=== PATIENT | female | born 1950 | race Caucasian/White ===

== ENCOUNTER 2016-07-23 17:22 | Outpatient (CLI) | payer BC ==
[2016-07-23] MEDS ORDERED: IOPAMIDOL-300 50 ML VIAL PO ONE (20:17)
[2016-07-23] MEDS ORDERED: IOPAMIDOL-300 100 ML VIAL IVP ONE (20:17)
== END 2016-07-23 17:23 | disposition home or self-care (01) ==
DX: R10.31 Right lower quadrant pain (principal); M51.36 Other intervertebral disc degeneration, lumbar region; M43.16 Spondylolisthesis, lumbar region
CPT/HCPCS: 36415; 74177; 80053; 85025; Q9967

== ENCOUNTER 2017-08-12 08:00 | Outpatient (CLI) | payer BC ==
[2017-08-12 19:01] LABS: BASOPHILS # (AUTO) 0.1 10^3/uL (0.0-0.1); BASOPHILS % (AUTO) 1.3 %; EOSINOPHILS # (AUTO) 0.3 10^3/uL (0.0-0.7); EOSINOPHILS % (AUTO) 4.3 %; HGB - HEMOGLOBIN 13.7 g/dL (12.0-16.0); LYMPHOCYTES # (AUTO) 1.9 10^3/uL (1.5-3.5); LYMPHOCYTES % (AUTO) 28.5 %; MEAN CORPUSCULAR HGB CONC 34.4 g/dL (32.0-36.0); MEAN CORPUSCULAR VOLUME 95.8 fL (81.0-99.0); MEAN PLATELET VOLUME 7.3 fL (7.9-10.8); MONOCYTES # (AUTO) 0.5 10^3/uL (0.0-1.0); MONOCYTES % (AUTO) 7.2 %; NEUTROPHILS # (AUTO) 3.9 10^3/uL (1.5-6.6); NEUTROPHILS % (AUTO) 58.7 %; PLT - PLATELET COUNT 282 10^3/uL (130-450); RED BLOOD COUNT 4.16 10^6/uL (4.20-5.40); RED CELL DISTRIBUTION WIDTH 12.6 % (12.0-15.0); WHITE BLOOD COUNT 6.7 x10^3/uL (4.8-10.8)
[2017-08-12 19:14] LABS: ALBUMIN/GLOBULIN RATIO 1.1 (1.0-2.2); ALKALINE PHOSPHATASE 62 IU/L (42-121); ALT ALANINE AMINOTRANSFERASE 13 IU/L (10-60); AST ASPARTATE AMINOTRANSFERASE 21 IU/L (10-42); BILIRUBIN,TOTAL 0.6 mg/dL (0.2-1.0); BUN - BLOOD UREA NITROGEN 14 mg/dL (6-20); CALCIUM 9.2 mg/dL (8.5-10.3); CARBON DIOXIDE - CO2 28 mmol/L (21-32); CHLORIDE 106 mmol/L (101-111); CHOL/HDL RATIO 4.3 (<4.4); CHOLESTEROL 247 mg/dL; CREATININE 0.9 mg/dL (0.4-1.0); GFR - MDRD 63 (>89); GLUCOSE 94 mg/dL (70-100); HDL CHOLESTEROL 58 mg/dL; LDL CHOLESTEROL,CALCULATED 168 mg/dL; LDL/HDL RATIO 2.9 (<4.4); SODIUM 139 mmol/L (135-145); TOTAL PROTEIN 7.6 g/dL (6.7-8.2); VLDL CHOLESTEROL 21 mg/dL
== END 2017-08-12 08:01 | disposition home or self-care (01) ==
LOC: LAB.WCP 08:00
PROVIDERS: ATTEND Family Medicine
DX: E78.5 Hyperlipidemia, unspecified (principal); R41.82 Altered mental status, unspecified; F32.9 Major depressive disorder, single episode, unspecified; R31.9 Hematuria, unspecified
CPT/HCPCS: 36415; 80053; 80061; 83721; 84443; 85025

== ENCOUNTER 2017-08-23 08:12 | Outpatient (CLI) | payer BC ==
--- NOTE | 2017-08-27 09:33 | DEXA Report ---
DEXA SCAN OF THE HIP, SPINE AND FOREARM: 08/23/2017 TECHNIQUE: Dual energy x-ray absorptiometry (DXA) was performed on a [employer]ef[employer] system. Regions measured are the AP spine, femoral neck, and, if needed, forearm. COMPARISON: None. In accordance with the International Society for Clinical Densitometry (ISCD) guidelines, data from previous exams may be reanalyzed using current recommendations and techniques. This is done to allow a more accurate basis for comparison with the current study. FINDINGS: The data for the lumbar spine is as follows: REGION BMD (g/cm/cm) T-SCORE Z-SCORE L1 0.796 -2.8 -1.4 L2 0.997 -1.7 -0.3 L3 1.098 -0.8 0.6 L4 1.029 -1.4 0.0 TOTAL 0.985 -1.6 -0.2 NOTE: All evaluable vertebrae are used for classification. The data for the hip is as follows: REGION BMD (g/cm/cm) T-SCORE Z-SCORE Neck 0.759 -2.0 -0.6 TOTAL 0.734 -2.2 -1.1 NOTE: The femoral neck or total proximal femur, whichever is lowest, is used for classification. The data for the forearm is as follows: REGION BMD (g/cm/cm) T-SCORE Z-SCORE 1/3 0.714 -1.8 -0.5 TOTAL 0.545 -2.1 -0.7 NOTE: The 33% radius of the nondominant forearm is used for classification. IMPRESSION: THE WHO CLASSIFICATION BASED ON THE INTERNATIONAL REFERENCE STANDARD IS OSTEOPENIA (REFERENCE TOTAL LEFT HIP). THE FRACTURE RISK IS INCREASED. RECOMMENDATION: Patients with diagnosis of osteoporosis or osteopenia should have regular bone mineral density assessment. For those eligible for Medicare, routine testing is allowed once every 2 years. Testing frequency can be increased for patients who have rapidly progressing disease or for those who are receiving medical therapy to restore bone mass. COMMENT: World Health Organization (WHO) definitions for osteoporosis and osteopenia: NORMAL BMD: T-score at 1.0 or higher, fracture risk is low. OSTEOPENIA BMD: T-score between 1.0 and -2.5, fracture risk is increased. OSTEOPOROSIS BMD: T-score at 2.5 or lower, fracture risk high. National Osteoporosis Foundation recommends: 1. Obtain adequate dietary calcium (at least 1200 mg per day) and vitamin D (400 -800 international units per day). 2. Participate, as appropriate, in regular weightbearing and muscle- strengthening exercise. 3. Avoid tobacco use and reduce alcohol and caffeine intake. 4. For more detailed information see the website at www.NOF.org. MTDD
== END 2017-08-23 08:13 | disposition home or self-care (01) ==
LOC: DI 08:12
PROVIDERS: ATTEND Family Medicine
DX: M85.89 Other specified disorders of bone density and structure, multiple sites (principal)
CPT/HCPCS: 77080; 77081

== ENCOUNTER 2018-04-04 14:55 | Outpatient (CLI) | payer MEDICARE, BC ==
--- NOTE | 2018-04-04 18:00 | MRI Report ---
Reason: MUSCLE SPASM,BACK LUMBAGO Procedure Date: 04/04/2018 Accession Number: [id number] / [id number] Procedure: MRI - Lumbar Spine W/O CPT Code: FULL RESULT: EXAM: MRI LUMBAR SPINE WITHOUT CONTRAST EXAM DATE: 04/04/2018 03:27 PM. CLINICAL HISTORY: Muscle spasm, back lumbago. COMPARISON: None. TECHNIQUE: Multiplanar, multisequence T1-weighted and fluid-sensitive sequences of the lumbar spine from T12 to S1 without contrast. Other: None. FINDINGS: Postsurgical: Postsurgical changes of L4-L5 left hemilaminectomy. Spinal Canal: The conus terminates at T12-L1. The conus medullaris and cauda equina are unremarkable. Alignment: There is 13 degrees of levoconvex scoliotic curvature centered about L2-L3. There is 7-8 mm of grade 1/2 anterolisthesis of L4 on L5. Bone Marrow: The last rib-bearing vertebral body is labeled T12. There appears to be partial sacralization of the L5 vertebral body. No acute fracture. There are Modic type II changes seen throughout the lumbar spine with scattered Modic type I changes seen. Findings likely are degenerative in nature. No definite abnormal marrow replacing lesion. Disk Levels/Facets: Mild to moderate endplate degenerative change, mild to moderate loss of disk height, disk desiccation seen throughout the lumbar spine. T12-L1: Tiny central disk protrusion. Minimal bilateral arthritic facet disease. No spinal canal stenosis. No neural foraminal narrowing. L1-L2: Tiny to small right and tiny left neural foraminal disk protrusions. Bilateral arthritic facet disease and prominent epidural fat. Effacement of the right lateral recess. Moderate right and mild left neural foraminal narrowing. L2-L3: Tiny right and small left neural foraminal disk protrusions. Bilateral arthritic facet disease. Effacement of the left lateral recess. Mild to moderate left neural foraminal narrowing. L3-L4: Small left subarticular to neural foraminal disk protrusion. Bilateral arthritic facet disease. Effacement of the left lateral recess with contact and potential mass effect on the traversing left L4 nerve root. Moderate left neural foraminal narrowing. L4-L5: Uncovering of the endplate. Surgical decompression of the thecal sac. Small posterior disk bulge and bilateral arthritic facet disease. No spinal canal stenosis. Moderate to severe bilateral neural foraminal narrowing. L5-S1: Small posterior disk bulge and bilateral arthritic facet disease. No spinal canal stenosis. Mild bilateral neural foraminal narrowing. Musculature: Severe fatty atrophy of the left multifidus muscles extending from L5 to the sacrum. There is mild fatty atrophy of the remaining multifidus muscles. Other: Right kidney lower pole T2 hyperintense lesion measuring up to 13 mm (series 601, image 28) finding may represent renal cyst. IMPRESSION: 1. There is 13 degrees of levoconvex scoliotic curvature centered about L2-L3. 2. There is 7-8 mm of grade 1/2 anterolisthesis of L4 on L5. 3. Multilevel degenerative changes. L1-L2: Effacement of the right lateral recess. Moderate right and mild left neural foraminal narrowing. L2-L3: Effacement of the left lateral recess. Mild to moderate left neural foraminal narrowing. L3-L4: Small left subarticular to neural foraminal disk protrusion. Effacement of the left lateral recess with contact and potential mass effect on the traversing left L4 nerve root. Moderate left neural foraminal narrowing. L4-L5: No spinal canal stenosis. Moderate to severe bilateral neural foraminal narrowing. L5-S1: No spinal canal stenosis. Mild bilateral neural foraminal narrowing. Comment: The following findings are so common in adults without low back pain that while we report their presence, they must be interpreted with caution and in the context of the clinical situation. (Reference Taneshak et al, Spine 2001) Prevalence of findings in patients without low back pain: Disk degeneration (any evidence): 92% Disk desiccation/T2 signal loss: 83% Disk height loss: 56% Disk bulge: 64% Disk protrusion: 32% Annular tear/high intensity zone: 38% RADIA
== END 2018-04-04 14:56 | disposition home or self-care (01) ==
LOC: DI 14:55
PROVIDERS: ATTEND Family Medicine
DX: M62.830 Muscle spasm of back (principal); M51.26 Other intervertebral disc displacement, lumbar region; M47.816 Spondylosis without myelopathy or radiculopathy, lumbar region; M41.86 Other forms of scoliosis, lumbar region
CPT/HCPCS: 72148

== ENCOUNTER 2018-09-16 10:32 | Outpatient (CLI) | payer MEDICARE ==
[2018-09-16 18:51] LABS: BASOPHILS # (AUTO) 0.1 10^3/uL (0.0-0.1); BASOPHILS % (AUTO) 1.4 %; EOSINOPHILS # (AUTO) 0.2 10^3/uL (0.0-0.7); EOSINOPHILS % (AUTO) 2.7 %; HGB - HEMOGLOBIN 14.2 g/dL (12.0-16.0); LYMPHOCYTES # (AUTO) 2.1 10^3/uL (1.5-3.5); LYMPHOCYTES % (AUTO) 32.1 %; MEAN CORPUSCULAR HEMOGLOBIN 31.6 pg (27.0-31.0); MEAN CORPUSCULAR HGB CONC 31.9 g/dL (32.0-36.0); MEAN CORPUSCULAR VOLUME 99.1 fL (81.0-99.0); MEAN PLATELET VOLUME 9.6 fL (7.9-10.8); MONOCYTES # (AUTO) 0.5 10^3/uL (0.0-1.0); MONOCYTES % (AUTO) 7.2 %; NEUTROPHILS # (AUTO) 3.7 10^3/uL (1.5-6.6); NEUTROPHILS % (AUTO) 56.4 %; PLT - PLATELET COUNT 322 10^3/uL (130-450); RED BLOOD COUNT 4.49 10^6/uL (4.20-5.40); RED CELL DISTRIBUTION WIDTH 12.1 % (12.0-15.0); WHITE BLOOD COUNT 6.6 x10^3/uL (4.8-10.8)
[2018-09-16 19:34] LABS: ALBUMIN 4.4 g/dL (3.2-5.5); ALBUMIN/GLOBULIN RATIO 1.2 (1.0-2.2); ALKALINE PHOSPHATASE 68 IU/L (42-121); ALT ALANINE AMINOTRANSFERASE 14 IU/L (10-60); AST ASPARTATE AMINOTRANSFERASE 24 IU/L (10-42); BILIRUBIN,TOTAL 0.5 mg/dL (0.2-1.0); BUN - BLOOD UREA NITROGEN 14 mg/dL (6-20); CALCIUM 9.6 mg/dL (8.5-10.3); CARBON DIOXIDE - CO2 26 mmol/L (21-32); CHLORIDE 103 mmol/L (101-111); CHOL/HDL RATIO 3.8 (<4.4); CHOLESTEROL 249 mg/dL; CREATININE 0.9 mg/dL (0.4-1.0); GFR - MDRD 63 (>89); GLUCOSE 98 mg/dL (70-100); HDL CHOLESTEROL 66 mg/dL; LDL CHOLESTEROL,CALCULATED 154 mg/dL; LDL/HDL RATIO 2.3 (<4.4); SODIUM 141 mmol/L (135-145); TOTAL PROTEIN 8.1 g/dL (6.7-8.2); VLDL CHOLESTEROL 29 mg/dL
== END 2018-09-16 10:33 | disposition home or self-care (01) ==
LOC: LAB.WCP 10:32
PROVIDERS: ATTEND Family Medicine
DX: E78.5 Hyperlipidemia, unspecified (principal); R53.82 Chronic fatigue, unspecified; I67.850 Cerebral autosomal dominant arteriopathy with subcortical infarcts and leukoencephalopathy
CPT/HCPCS: 36415; 80053; 80061; 83721; 84443; 85025

== ENCOUNTER 2019-02-23 09:51 | Outpatient (CLI) | payer MEDICARE, OTHER ==
--- NOTE | 2019-02-24 11:12 | MRI Report ---
Reason: HEADACHE, CEREBRAL AUTOSOMAL DOM ARTERIOPATHY Procedure Date: 02/23/2019 Accession Number: [id number] / [id number] Procedure: MRI - Brain W/O CPT Code: Final Report FULL RESULT: EXAM: MRI BRAIN WITHOUT CONTRAST EXAM DATE: 02/23/2019 10:42 AM. CLINICAL HISTORY: Headache, cerebral autosomal dominant arteriopathy. COMPARISON: MRI BRAIN W TECHNIQUE: Multiplanar, multisequence T1-weighted and fluid-sensitive MR sequences of the brain were performed. Sequences optimized for routine evaluation. Other: None. IV Contrast: None. FINDINGS: Brain Volume: Mild diffuse atrophy is present. Parenchyma/Dura: No mass, acute infarct or hemorrhage. Extensive confluent white matter signal abnormality is seen throughout the cerebral hemispheres. Involvement of anterior temporal pole, external capsule, and paramedian superior frontal lobes are seen in addition to extensive diffuse involvement of cerebral hemispheres and brainstem. There is mild progression compared to the prior study. Associated similar appearing patchy signal abnormality is seen throughout the deep nuclear region and thalami bilaterally. This is not significantly changed. Ventricles/Cisterns: No hydrocephalus. No abnormal extra-axial fluid collection or hemorrhage. Orbits: Symmetric and unremarkable. Sella Turcica: The pituitary gland, cavernous sinuses, suprasellar cistern and optic chiasm are unremarkable. IAC: Symmetric and unremarkable. Vasculature: Normal signal flow void is seen in the major arterial structures at the skull base. Sinuses: Partial opacification is seen involving inferior right mastoid air cells. Mucosal thickening is seen involving inferior left mastoid air cells. The paranasal sinuses are clear. Bones: Focal marked bone marrow edema is seen involving the C3 left facet process. Involvement of adjacent left C2 and C4 facet processes at intervening facet joints is seen as well. This is new compared to prior study. No abnormal bone marrow replacement is seen within the skull. Other: None. IMPRESSION: 1. Extensive parenchymal signal abnormality predominating in the white matter of the cerebral hemispheres and brainstem with involvement of deep nuclear structures as well. This has shown mild progression. 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 2. No acute infarct, mass, or hemorrhage. 3. Bone marrow signal abnormality suggesting edema centered in the C3 left facet process and adjacent inferior C2 and superior C4 facet processes. Findings may be secondary to spondylosis. This could be further evaluated with MRI of the cervical spine. If the patient has an oncologic history, further evaluation with bone scan may be of value. RADIA
== END 2019-02-23 09:52 | disposition home or self-care (01) ==
LOC: DI 09:51
PROVIDERS: ATTEND Family Medicine
DX: R51 Headache (principal); I67.89 Other cerebrovascular disease
CPT/HCPCS: 70551

== ENCOUNTER 2020-04-05 13:15 | Outpatient (CLI) | payer MEDICARE, OTHER ==
[2020-04-05 17:56] LABS: BASOPHILS # (AUTO) 0.1 10^3/uL (0.0-0.1); BASOPHILS % (AUTO) 0.9 %; EOSINOPHILS # (AUTO) 0.2 10^3/uL (0.0-0.7); EOSINOPHILS % (AUTO) 2.8 %; HGB - HEMOGLOBIN 14.2 g/dL (12.0-16.0); LYMPHOCYTES # (AUTO) 2.4 10^3/uL (1.5-3.5); MEAN CORPUSCULAR HEMOGLOBIN 32.5 pg (27.0-31.0); MEAN CORPUSCULAR HGB CONC 32.8 g/dL (32.0-36.0); MEAN CORPUSCULAR VOLUME 99.1 fL (81.0-99.0); MEAN PLATELET VOLUME 9.1 fL (7.9-10.8); MONOCYTES # (AUTO) 0.5 10^3/uL (0.0-1.0); MONOCYTES % (AUTO) 6.1 %; NEUTROPHILS # (AUTO) 4.4 10^3/uL (1.5-6.6); NEUTROPHILS % (AUTO) 57.9 %; PLT - PLATELET COUNT 307 10^3/uL (130-450); RED BLOOD COUNT 4.37 10^6/uL (4.20-5.40); RED CELL DISTRIBUTION WIDTH 11.8 % (12.0-15.0); WHITE BLOOD COUNT 7.6 x10^3/uL (4.8-10.8)
[2020-04-05 19:18] LABS: ALBUMIN 4.3 g/dL (3.2-5.5); ALBUMIN/GLOBULIN RATIO 1.2 (1.0-2.2); ALKALINE PHOSPHATASE 61 IU/L (42-121); ALT ALANINE AMINOTRANSFERASE 11 IU/L (10-60); AST ASPARTATE AMINOTRANSFERASE 19 IU/L (10-42); BILIRUBIN,TOTAL 0.8 mg/dL (0.2-1.0); BUN - BLOOD UREA NITROGEN 13 mg/dL (6-20); CALCIUM 9.1 mg/dL (8.5-10.3); CARBON DIOXIDE - CO2 27 mmol/L (21-32); CHLORIDE 104 mmol/L (101-111); CHOL/HDL RATIO 3.8 (<4.4); CHOLESTEROL 243 mg/dL; CREATININE 0.8 mg/dL (0.4-1.0); GLUCOSE 106 mg/dL (70-100); HDL CHOLESTEROL 64 mg/dL; LDL CHOLESTEROL,CALCULATED 139 mg/dL; LDL/HDL RATIO 2.2 (<4.4); SODIUM 139 mmol/L (135-145); TOTAL PROTEIN 7.9 g/dL (6.7-8.2); VLDL CHOLESTEROL 40 mg/dL
== END 2020-04-05 23:59 | disposition home or self-care (01) ==
LOC: LAB.WCP 13:15
PROVIDERS: ATTEND Internal Medicine
DX: M85.80 Other specified disorders of bone density and structure, unspecified site (principal); I67.850 Cerebral autosomal dominant arteriopathy with subcortical infarcts and leukoencephalopathy; E55.9 Vitamin D deficiency, unspecified; R53.82 Chronic fatigue, unspecified; E75.29 Other sphingolipidosis; F32.9 Major depressive disorder, single episode, unspecified
CPT/HCPCS: 36415; 80053; 80061; 83721; 84443; 85025

== ENCOUNTER 2020-04-18 16:44 | Outpatient (CLI) | payer MEDICARE, OTHER ==
--- NOTE | 2020-04-18 18:22 | MRI Report ---
PROCEDURE: Cervical Spine W/O INDICATIONS: LEFT CERVICAL RADICULOPATHY TECHNIQUE: Noncontrast sagittal T1 spin echo and T2 fast spin echo, sagittal STIR, foraminal oblique sagittal T2 fast spin echo, and axial gradient echo or T2 fast spin echo through the cervical spine. COMPARISON: None. FINDINGS: Image quality: Motion artifact is noted. Alignment and Curvature: There is minimal anterolisthesis seen at the C3-C4 level. Mild retrolisthes is is seen at C5-C6. Minimal retrolisthesis is seen at C6-C7. Minimal anterolisthesis is seen at C7-T 1. Bone Marrow: Marrow demonstrates normal overall signal. Spinal Cord: Visualized spinal cord has normal size and signal. No cerebellar tonsillar herniation. Paraspinous Soft Tissues: No paravertebral masses. Prevertebral soft tissues are normal in thicknes s. C2-C3: The disc height is well-preserved. There is loss of disc signal seen. Mild disc osteophyte c omplex is seen. There is mild right-sided and moderate to prominent left-sided facet hypertrophy see n. There is moderate to severe left-sided and moderate right-sided neuroforaminal narrowing seen. No significant central canal narrowing is seen. C3-C4: Moderate disc osteophyte complex is seen. Mild disc osteophyte complex is seen. At least moderate facet hypertrophy can be seen. Moderate to severe bilateral neuroforaminal narrowing is seen . Moderate to severe central canal narrowing is seen. Associated mass effect is seen upon the ventra l spinal cord. C4-C5: Moderate to severe loss of disc height and disc signal can be seen. Moderate disc osteophyte complex is seen. There is mild right-sided and moderate left-sided facet hypertrophy seen at this level. There is at least moderate bilateral neuroforaminal narrowing seen, left worse than right. At least moderate central canal narrowing is seen. Associated mass effect is seen upon the ventral spin al cord. C5-C6: Moderate to severe loss of disc height and disc signal can be seen. Endplate irregularity can be seen. At least partially bridging anterior osteophytes are seen at this level. Moderate disc oste ophyte complex is seen, which is eccentric to the right. There is a central/right disc osteophyte pro trusion seen, as on series 1001 image 16. Moderate facet hypertrophy is seen, right worse than left. There is moderate to severe bilateral neuroforaminal narrowing seen, right worse than left. Moderate to severe central canal narrowing is seen, with associated mass effect upon the ventral spinal cord. C6-C7: Moderate loss of disc height and signal are seen. Moderate disc osteophyte complex is seen, which is eccentric to the left. Mild to moderate facet hypertrophy is seen. There is moderate to sev ere bilateral neuroforaminal narrowing seen, left worse than right. Mild to moderate central canal na rrowing is seen at this level. C7-T1: Mild to moderate loss of disc height and disc signal can be seen at this level. At least mode rate disc osteophyte complex is seen, right worse than left. Mild to moderate facet hypertrophy is se en. There is at least moderate bilateral neuroforaminal narrowing seen. Mild to moderate central beto l narrowing can be seen. IMPRESSION: Multiple levels of prominent cervical spine degenerative change are seen, which are overall most prom inent inferiorly. Reviewed by: Aries Capone MD on 04/18/2020 5:21 PM AKST Approved by: Aries Capone MD on 04/18/2020 5:21 PM AKST Station ID: [id number]
== END 2020-04-18 16:45 | disposition home or self-care (01) ==
LOC: DI 16:44
PROVIDERS: ATTEND Internal Medicine
DX: M47.22 Other spondylosis with radiculopathy, cervical region (principal); M48.02 Spinal stenosis, cervical region

== ENCOUNTER 2020-05-20 07:00 | Outpatient (CLI) | payer MEDICARE, OTHER | END 2020-05-20 23:59 | disposition home or self-care (01) | LOC: COV 07:00 | PROVIDERS: ATTEND Ophthalmology | DX: Z01.812 Encounter for preprocedural laboratory examination (principal); H25.812 Combined forms of age-related cataract, left eye; Z20.822 Contact with and (suspected) exposure to COVID-19 ==

== ENCOUNTER 2020-05-23 06:14 | Day surgery (SDC) | payer MEDICARE, OTHER ==
[2020-05-23] MEDS ORDERED: PROPARACAINE 0.5% OPHTH DROPS 15 ML ONE (06:23)
[2020-05-23] MEDS ORDERED: PHENYLEPHRINE 2.5% OPHTH 2 ML DROPS ONE (06:23)
[2020-05-23] MEDS ORDERED: KETOROLAC 0.45% OPHTH DROPS ONE (06:23)
[2020-05-23] MEDS ORDERED: LACTATED RINGERS 500 ML IV ONE (06:41)
[2020-05-23] MEDS ORDERED: TIMOLOL 0.5% OPHTH DROPS ONE (07:03)
[2020-05-23] MEDS ORDERED: TRIAMCIN/MOXIFLOX OPHTHALMIC 0.6 ML VIAL IO ONE ×2 (07:03→07:32)
[2020-05-23] MEDS ORDERED: BRIMONIDINE 0.2% OPHTH DROPS 5 ML ONE (07:03)
[2020-05-23] MEDS ORDERED: EPINEPHrine 1 MG/ML AMP ONE (07:03)
[2020-05-23] MEDS ORDERED: VANCOMYCIN OPHTHALMI 8MG/0.8ML 8 MG/0.8 ML SYRINGE IO ONE ×2 (07:04→07:32)
[2020-05-23] MEDS ORDERED: BSS/LIDOCAINE/EPINEPHRINE 1 ML SYRINGE ONE (07:04)
[2020-05-23] MEDS ORDERED: MIDAZOLAM 2 MG/2 ML VIAL ONE (07:11)
--- NOTE | 2020-05-23 07:12 | ANESTHESIA ---
Pre-Anesthesia VS, & Labs - Diagnosis left senile combined cataract - Procedure left cataract extraction with iol Vital Signs: Temp Pulse Resp BP Pulse Ox 36.7 C 57 L 16 111/67 97 05/23/20 06:35 05/23/20 06:35 05/23/20 06:35 05/23/20 06:35 05/23/20 06:35 Height: 5 ft 8 in Weight (kg): 69.7 kg Body Mass Index: 23.3 BMI Classification: Healthy weight - NPO >8 hours - Is Patient ?: No Home Medications and Allergies Home Medications: Ambulatory Orders Modafinil [Provigil] 200 mg PO BID 05/22/20 buPROPion [Wellbutrin Xl] 150 mg PO DAILY 12/10/15 Modafinil [Provigil] 200 mg PO BID 05/22/20 Allergies/Adverse Reactions: Allergies Allergy/AdvReac Type Severity Reaction Status Date / Time No Known Drug Allergies Allergy Verified 12/10/15 14:20 Anes History & Medical History - Anesthetic History Anesthesia Complications: reports: No previous complications - Medical History Cardiovascular: reports: None Pulmonary: reports: None Gastrointestinal: reports: Chronic constipation Urinary: reports: None Musculoskeletal: reports: Osteoarthritis Endocrine/Autoimmune: reports: None Blood Disorders: reports: None Skin: reports: None, Other Smoking Status: Never smoker History of Cancer?: No - Surgical History General: reports: Other Gynecologic: reports: Hysterectomy Exam General: Alert Dental: WNL Mouth Opening: Greater than 4 Fingerbreadths Neck Mobility: Normal Mallampati classification: I Thyromental Distance: greater than 6 cm Respiratory: Lungs clear Cardiovascular: Regular rate Plan Anesthesia Type: MAC Consent for Procedure(s) Verified and Reviewed: Yes Code Status: Attempt Resuscitation ASA classification: 2-Mild systemic disease Is this case an emergency?: No
[2020-05-23] MEDS ORDERED: BRIMONIDINE 0.2% OPHTH DROPS 5 ML OPTH ONE (07:31)
[2020-05-23] MEDS ORDERED: EPINEPHrine 1 MG/ML AMP IR ONE (07:31)
[2020-05-23] MEDS ORDERED: CHONDR SULF/HYALURONATE SYRINGE IO ONE (07:31)
[2020-05-23] MEDS ORDERED: TIMOLOL 0.5% OPHTH DROPS OPTH ONE (07:32)
[2020-05-23] MEDS ORDERED: BSS/LIDOCAINE/EPINEPHRINE 1 ML SYRINGE IO ONE (07:32)
[2020-05-23] MEDS ORDERED: PROPARACAINE 0.5% OPHTH DROPS 15 ML EACHEYE ONE (07:32)
[2020-05-23] MEDS ORDERED: LACTATED RINGERS 450 ML IV ONE (07:44)
[2020-05-23 08:00] VITALS: BP 111/70
--- NOTE | 2020-05-23 08:48 | OPERATIVE REPORT ---
DATE OF SERVICE: 05/23/2020 Physician: Jesus Saxena MD PREOPERATIVE DIAGNOSIS: Visually significant cataract, left eye. This was her first cataract surger y. POSTOPERATIVE DIAGNOSIS: Visually significant cataract, left eye. This was her first cataract surge ry. PROCEDURE: Phacoemulsification with posterior chamber intraocular lens implant, left eye. SURGEON: Jesus Saxena MD ANESTHESIA: Monitored anesthesia care. COMPLICATIONS: None. OPERATIVE INDICATIONS: This is a 70-year-old woman with progressive vision loss in the left eye due to 2+ nuclear sclerotic and 2+ cortical cataract. Best corrected visual acuity was 20/25 with glare to hand motion vision in the left eye. Indications for surgery were difficulty reading, difficulty s eeing street signs, difficulty driving in low light or at night, difficulty driving at night because headlights from other vehicles, difficulty with glare or bright lights in any situation, and blurred vision, halos and vision decrease The patient was consented at length concerning risks and benefits o f cataract surgery, after which she expressed a desire to proceed with surgery. OPERATIVE PROCEDURE: The patient was taken to OR #3 and placed under monitored anesthesia care. A s urgical timeout was conducted, confirming correct patient, correct procedure, and correct surgical si te. She was given topical anesthesia, and prepped and draped in the usual sterile fashion. The eye was entered at the 6 and 3 o'clock positions. Intracameral Shugarcaine was injected into the anterio r chamber followed by Viscoat. A continuous-tear curvilinear capsulorrhexis was performed. The nucl eus was hydrodissected and phacoemulsified. The cortex was evacuated using automated infusion and as piration. Provisc was injected in the capsular bag, and a 22.5 diopter intraocular lens was inserted into the bag. Infusion and aspiration were used to evacuate the viscoelastic materials. The eye wa s inflated to physiologic pressure using balanced salt solution and found to be watertight. Approxim ately 0.25 mL of a mixture of triamcinolone and moxifloxacin was injected transsclerally into the vit reous in the inferotemporal quadrant. An additional 0.55 mL of a mixture of triamcinolone, moxifloxa paulo, and vancomycin was injected subconjunctivally in the superior quadrant for infection and inflamm ation prophylaxis. Wound integrity was checked with Weck-Emilia sponges. The patient was taken from [facility] operating room in good condition and given postoperative instructions. TD: 05/23/2020 07:56
--- NOTE | 2020-05-23 10:47 | ANESTHESIA POST OP EVALUATION ---
Anesthesia Post Eval - Post Anesthesia Eval Vitals: Last Vital Signs Temp 36.3 C L 05/23/20 07:59 Pulse 50 L 05/23/20 07:59 Resp 16 05/23/20 07:59 BP 111/70 05/23/20 07:59 Pulse Ox 100 05/23/20 07:59 CV Function Including HR & BP: positive: Stable Pain Control: positive: Satisfactory Nausea & Vomiting: positive: Negative Mental Status: positive: Baseline Respiratory Status: Airway Patent Hydration Status: Satisfactory Anesthesia Complications: positive: None
== END 2020-05-23 06:15 | disposition home or self-care (01) ==
LOC: SDS 06:14
PROVIDERS: ATTEND Ophthalmology
DX: H25.812 Combined forms of age-related cataract, left eye (principal); F32.9 Major depressive disorder, single episode, unspecified; I67.850 Cerebral autosomal dominant arteriopathy with subcortical infarcts and leukoencephalopathy
CPT/HCPCS: 66984; A9270; J3490; J7120

== ENCOUNTER 2020-07-22 20:26 | Outpatient (CLI) | payer MEDICARE, OTHER | END 2020-07-22 20:27 | disposition home or self-care (01) | LOC: COV 20:26 | PROVIDERS: ATTEND Ophthalmology | DX: Z01.812 Encounter for preprocedural laboratory examination (principal); H25.811 Combined forms of age-related cataract, right eye; Z20.822 Contact with and (suspected) exposure to COVID-19 ==

== ENCOUNTER 2020-07-25 08:02 | Day surgery (SDC) | payer MEDICARE, OTHER ==
[~2020-07-25 08:02] MED LIST: KETOROLAC 0.45% OPHTH DROPS ONE; PROPARACAINE 0.5% OPHTH DROPS 15 ML ONE
[2020-07-25] MEDS ORDERED: LACTATED RINGERS 500 ML IV ONE ×2 (08:29→09:36)
[2020-07-25] MEDS ORDERED: TRIAMCIN/MOXIFLOX OPHTHALMIC 0.6 ML VIAL IO ONE ×3 (08:34→09:29)
[2020-07-25] MEDS ORDERED: BRIMONIDINE 0.2% OPHTH DROPS 5 ML ONE (08:35)
[2020-07-25] MEDS ORDERED: VANCOMYCIN OPHTHALMI 8MG/0.8ML 8 MG/0.8 ML SYRINGE IO ONE ×2 (08:35→09:29)
[2020-07-25] MEDS ORDERED: EPINEPHrine 1 MG/ML AMP ONE (08:35)
[2020-07-25] MEDS ORDERED: TIMOLOL 0.5% OPHTH DROPS ONE (08:35)
[2020-07-25] MEDS ORDERED: BSS/LIDOCAINE/EPINEPHRINE 1 ML SYRINGE ONE (08:35)
[2020-07-25] MEDS ORDERED: MIDAZOLAM 2 MG/2 ML VIAL ONE (08:53)
--- NOTE | 2020-07-25 09:15 | ANESTHESIA ---
Pre-Anesthesia VS, & Labs - Diagnosis senile combined cataract right eye - Procedure right cataract extraction with IOL Vital Signs: Temp Pulse Resp BP Pulse Ox 36.4 C L 53 L 16 118/88 H 96 07/25/20 08:00 07/25/20 08:00 07/25/20 08:00 07/25/20 08:00 07/25/20 08:00 Height: 5 ft 7 in Weight (kg): 68.2 kg Body Mass Index: 23.5 BMI Classification: Healthy weight - NPO >8 hours - Is Patient ?: No Home Medications and Allergies buPROPion [Wellbutrin Xl] 150 mg PO DAILY 12/10/15 modafiniL [Provigil] 200 mg PO BID 05/22/20 Allergies/Adverse Reactions: Allergies Allergy/AdvReac Type Severity Reaction Status Date / Time No Known Drug Allergies Allergy Verified 12/10/15 14:20 Anes History & Medical History - Anesthetic History Anesthesia Complications: reports: No previous complications - Medical History Cardiovascular: reports: None Pulmonary: reports: None Gastrointestinal: reports: Chronic constipation Urinary: reports: None Neuro: reports: TIA Musculoskeletal: reports: None Endocrine/Autoimmune: reports: None Blood Disorders: reports: None Skin: reports: None Smoking Status: Former smoker (quit 1984) Psychosocial: reports: No issues indicated History of Cancer?: Yes (skin cancer) - Surgical History General: reports: Other Eyes Ears Nose Throat (EENT): reports: Cataracts Gynecologic: reports: Hysterectomy Exam General: Alert, Oriented x3, Cooperative, No acute distress Dental: WNL Mouth Openin Fingerbreadth Neck Mobility: Normal Mallampati classification: I Thyromental Distance: 4-6 cm Mental/Cognitive Status: Alert/Oriented X3, Normal for patient Plan Anesthesia Type: MAC Consent for Procedure(s) Verified and Reviewed: Yes Code Status: Attempt Resuscitation ASA classification: 2-Mild systemic disease Is this case an emergency?: No
[2020-07-25] MEDS ORDERED: BRIMONIDINE 0.2% OPHTH DROPS 5 ML OPTH ONE (09:28)
[2020-07-25] MEDS ORDERED: TIMOLOL 0.5% OPHTH DROPS OPTH ONE (09:28)
[2020-07-25] MEDS ORDERED: BSS/LIDOCAINE/EPINEPHRINE 1 ML SYRINGE IO ONE (09:28)
[2020-07-25] MEDS ORDERED: CHONDR SULF/HYALURONATE SYRINGE IO ONE (09:28)
[2020-07-25] MEDS ORDERED: EPINEPHrine 1 MG/ML AMP IR ONE (09:28)
[2020-07-25] MEDS ORDERED: PROPARACAINE 0.5% OPHTH DROPS 15 ML EACHEYE ONE (09:29)
[2020-07-25 09:46] VITALS: BP 110/75
--- NOTE | 2020-07-25 11:06 | OPERATIVE REPORT ---
DATE OF SERVICE: 07/25/2020 Physician: Jesus Saxena MD PREOPERATIVE DIAGNOSIS: Visually significant cataract, right eye. Cataract surgery was performed on the left eye on 05/23/2020. POSTOPERATIVE DIAGNOSIS: Visually significant cataract, right eye. Cataract surgery was performed o n the left eye on 05/23/2020. PROCEDURE: Phacoemulsification with posterior chamber intraocular lens implant, right eye. SURGEON: Jesus Saxena III, MD ANESTHESIA: Monitored anesthesia care. COMPLICATIONS: None. OPERATIVE INDICATIONS: This is a 70-year-old woman with progressive vision loss in the right eye due to 2+ nuclear sclerotic and 2+ cortical cataract. Best corrected visual acuity was 20/30, with glar e to hand motion vision in the right eye. Indications for surgery were difficulty reading, difficult y seeing words, closed caption or game scores on TV, difficulty seeing street signs, difficulty drivi ng in low light or at night, difficulty driving at night because headlights from other vehicles and d ifficulty with glare or bright lights in any situation. She was consented at length concerning risks and benefits of cataract surgery, after which she expressed a desire to proceed with surgery. OPERATIVE PROCEDURE: The patient was taken into OR #3 and placed under monitored anesthesia care. A surgical timeout was conducted, confirming correct patient, correct procedure and correct surgical s ite. She was given topical anesthesia and prepped and draped in the usual sterile fashion. The eye was entered at the 12 and 9 o'clock positions. Intracameral Shugarcaine was injected into the anteri or chamber followed by Viscoat. A continuous-tear curvilinear capsulorrhexis was performed. The nuc leus was hydrodissected and phacoemulsified. The cortex was evacuated using automated infusion and a spiration. Provisc was injected in the capsular bag and a 22.0 diopter intraocular lens inserted in the bag. Infusion and aspiration were used to evacuate the viscoelastic materials. The eye was infl ated to physiologic pressure using balanced salt solution and found to be watertight. Approximately 0.25 mL of a mixture of triamcinolone and moxifloxacin was injected transsclerally into the vitreous in the inferotemporal quadrant. An additional 0.55 mL of a mixture of triamcinolone, moxifloxacin, a nd vancomycin was injected subconjunctivally in the superior quadrant for infection and inflammation prophylaxis. Wound integrity was checked with Weck-Emilia sponges. The patient was taken from the oper ating room in good condition and given postoperative instructions. TD: 07/25/2020 10:30
--- NOTE | 2020-07-25 13:15 | ANESTHESIA POST OP EVALUATION ---
Anesthesia Post Eval - Post Anesthesia Eval Vitals: Last Vital Signs Temp 36.4 C L 07/25/20 08:00 Pulse 57 L 07/25/20 09:46 Resp 15 07/25/20 09:46 BP 110/75 07/25/20 09:46 Pulse Ox 97 07/25/20 09:46 CV Function Including HR & BP: Stable Pain Control: Satisfactory Nausea & Vomiting: Negative Mental Status: Baseline Respiratory Status: Airway Patent Hydration Status: Satisfactory Anesthesia Complications: None
== END 2020-07-25 08:03 | disposition home or self-care (01) ==
LOC: SDS 08:02
PROVIDERS: ATTEND Ophthalmology
DX: H25.811 Combined forms of age-related cataract, right eye (principal); F32.9 Major depressive disorder, single episode, unspecified; I67.850 Cerebral autosomal dominant arteriopathy with subcortical infarcts and leukoencephalopathy; Z87.891 Personal history of nicotine dependence
CPT/HCPCS: 66984; A9270; J3490; J7120

== ENCOUNTER 2021-02-03 10:00 | Outpatient (CLI) | payer MEDICARE, OTHER ==
[2021-02-03 12:16] LABS: BASOPHILS # (AUTO) 0.1 10^3/uL (0.0-0.1); EOSINOPHILS # (AUTO) 0.4 10^3/uL (0.0-0.7); EOSINOPHILS % (AUTO) 4.7 %; HCT - HEMATOCRIT 41.4 % (37.0-47.0); HGB - HEMOGLOBIN 13.8 g/dL (12.0-16.0); LYMPHOCYTES # (AUTO) 2.2 10^3/uL (1.5-3.5); LYMPHOCYTES % (AUTO) 28.8 %; MEAN CORPUSCULAR HEMOGLOBIN 32.6 pg (27.0-31.0); MEAN CORPUSCULAR HGB CONC 33.3 g/dL (32.0-36.0); MEAN CORPUSCULAR VOLUME 97.9 fL (81.0-99.0); MEAN PLATELET VOLUME 9.4 fL (7.9-10.8); MONOCYTES # (AUTO) 0.7 10^3/uL (0.0-1.0); MONOCYTES % (AUTO) 9.5 %; NEUTROPHILS # (AUTO) 4.3 10^3/uL (1.5-6.6); NEUTROPHILS % (AUTO) 55.7 %; PLT - PLATELET COUNT 308 10^3/uL (130-450); RED BLOOD COUNT 4.23 10^6/uL (4.20-5.40); RED CELL DISTRIBUTION WIDTH 11.9 % (12.0-15.0); WHITE BLOOD COUNT 7.7 x10^3/uL (4.8-10.8)
[2021-02-03 12:28] LABS: CALCIUM 9.5 mg/dL (8.5-10.3)
== END 2021-02-03 23:59 | disposition home or self-care (01) ==
LOC: LAB.WCP 10:00
PROVIDERS: ATTEND Internal Medicine
DX: Z01.812 Encounter for preprocedural laboratory examination (principal)
CPT/HCPCS: 36415; 80048; 85025

== ENCOUNTER 2022-06-10 12:51 | Outpatient (CLI) | payer MEDICARE, OTHER ==
[2022-06-10 18:14] LABS: BASOPHILS # (AUTO) 0.1 10^3/uL (0.0-0.1); BASOPHILS % (AUTO) 1.2 %; EOSINOPHILS # (AUTO) 0.2 10^3/uL (0.0-0.7); EOSINOPHILS % (AUTO) 2.6 %; HCT - HEMATOCRIT 45.9 % (37.0-47.0); HGB - HEMOGLOBIN 15.1 g/dL (12.0-16.0); LYMPHOCYTES # (AUTO) 2.3 10^3/uL (1.5-3.5); LYMPHOCYTES % (AUTO) 31.3 %; MEAN CORPUSCULAR HEMOGLOBIN 31.9 pg (27.0-31.0); MEAN CORPUSCULAR HGB CONC 32.9 g/dL (32.0-36.0); MEAN CORPUSCULAR VOLUME 96.8 fL (81.0-99.0); MEAN PLATELET VOLUME 9.4 fL (7.9-10.8); MONOCYTES # (AUTO) 0.6 10^3/uL (0.0-1.0); MONOCYTES % (AUTO) 7.6 %; NEUTROPHILS # (AUTO) 4.1 10^3/uL (1.5-6.6); PLT - PLATELET COUNT 336 10^3/uL (130-450); RED BLOOD COUNT 4.74 10^6/uL (4.20-5.40); WHITE BLOOD COUNT 7.2 x10^3/uL (4.8-10.8)
[2022-06-10 18:28] LABS: ALBUMIN 4.3 g/dL (3.2-5.5); ALBUMIN/GLOBULIN RATIO 1.1 (1.0-2.2); ALKALINE PHOSPHATASE 59 IU/L (42-121); ALT ALANINE AMINOTRANSFERASE 17 IU/L (10-60); AST ASPARTATE AMINOTRANSFERASE 21 IU/L (10-42); BILIRUBIN,TOTAL 0.8 mg/dL (0.2-1.0); BUN - BLOOD UREA NITROGEN 14 mg/dL (6-20); CALCIUM 9.4 mg/dL (8.5-10.3); CARBON DIOXIDE - CO2 27 mmol/L (21-32); CHLORIDE 107 mmol/L (101-111); CHOL/HDL RATIO 3.7 (<4.4); CHOLESTEROL 238 mg/dL; CREATININE 0.9 mg/dL (0.4-1.0); GFR - MDRD 62 (>89); GLUCOSE 106 mg/dL (70-100); HDL CHOLESTEROL 65 mg/dL; LDL CHOLESTEROL,CALCULATED 144 mg/dL; LDL/HDL RATIO 2.2 (<4.4); POTASSIUM 4.1 mmol/L (3.5-5.0); SODIUM 140 mmol/L (135-145); TOTAL PROTEIN 8.3 g/dL (6.7-8.2); TRIGLYCERIDES 143 mg/dL; VLDL CHOLESTEROL 29 mg/dL
[2022-06-10 18:41] LABS: THYROID STIMULATING HORMONE 1.85 uIU/mL (0.34-5.60)
== END 2022-06-10 12:52 | disposition home or self-care (01) ==
LOC: LAB.N 12:51
PROVIDERS: ATTEND Internal Medicine
DX: E78.5 Hyperlipidemia, unspecified (principal); R53.82 Chronic fatigue, unspecified
CPT/HCPCS: 36415; 80053; 80061; 83721; 84443; 85025

== ENCOUNTER 2022-06-19 10:17 | Outpatient (CLI) | payer MEDICARE, OTHER ==
[2022-06-19 18:00] LABS: FERRITIN 25.5 ng/mL (11.0-306.8)
[2022-06-19 22:15] LABS: ESTIMATED AVERAGE GLUCOSE 111 mg/dL (70-100); HEMOGLOBIN A1c% 5.5 % (4.27-6.07)
[2022-06-23 16:08] LABS: ALBUMIN 3.8 g/dL (2.9-4.4); ALPHA-1-GLOBULIN 0.2 g/dL (0.0-0.4); ALPHA-2-GLOBULIN 0.7 g/dL (0.4-1.0); BETA GLOBULIN 1.5 g/dL (0.7-1.3); GAMMA GLOBULIN 1.5 g/dL (0.4-1.8); GLOBULIN TOTAL 3.9 g/dL (2.2-3.9); IMMUNOGLOBULIN A (IGA) 667 mg/dL (87-352); IMMUNOGLOBULIN G (IGG) 1344 mg/dL (586-1602); IMMUNOGLOBULIN M (IGM) 73 mg/dL (26-217); M-SPIKE Not Observed g/dL (Not Observed); PROTEIN TOTAL 7.7 g/dL (6.0-8.5)
== END 2022-06-19 10:18 | disposition home or self-care (01) ==
LOC: LAB.N 10:17
PROVIDERS: ATTEND Internal Medicine
DX: E78.5 Hyperlipidemia, unspecified (principal); G62.9 Polyneuropathy, unspecified; G25.81 Restless legs syndrome
CPT/HCPCS: 36415; 82607; 82728; 82784; 83036; 84155; 84165; 86334

== ENCOUNTER 2023-11-08 09:41 | Outpatient (CLI) | payer MEDICARE, OTHER ==
[2023-11-08 14:12] LABS: ALBUMIN 3.9 g/dL (3.2-5.5); ALBUMIN/GLOBULIN RATIO 1.1 (1.0-2.2); ALKALINE PHOSPHATASE 56 IU/L (42-121); ALT ALANINE AMINOTRANSFERASE 13 IU/L (10-60); AST ASPARTATE AMINOTRANSFERASE 16 IU/L (10-42); BILIRUBIN,TOTAL 0.6 mg/dL (0.2-1.0); BUN - BLOOD UREA NITROGEN 20 mg/dL (6-20); CALCIUM 9.2 mg/dL (8.5-10.3); CARBON DIOXIDE - CO2 28 mmol/L (21-32); CHLORIDE 107 mmol/L (101-111); CHOL/HDL RATIO 3.9 (<4.4); CHOLESTEROL 221 mg/dL; GFR - MDRD 55 (>89); GLUCOSE 98 mg/dL (74-104); HDL CHOLESTEROL 56 mg/dL; LDL CHOLESTEROL,CALCULATED 141 mg/dL; LDL/HDL RATIO 2.5 (<4.4); POTASSIUM 3.8 mmol/L (3.5-4.5); SODIUM 139 mmol/L (135-145); TOTAL PROTEIN 7.4 g/dL (6.4-8.9); TRIGLYCERIDES 120 mg/dL; VLDL CHOLESTEROL 24 mg/dL
[2023-11-08 14:35] LABS: BASOPHILS # (AUTO) 0.1 10^3/uL (0.0-0.1); BASOPHILS % (AUTO) 1.2 %; EOSINOPHILS # (AUTO) 0.2 10^3/uL (0.0-0.7); EOSINOPHILS % (AUTO) 2.5 %; HCT - HEMATOCRIT 42.1 % (37.0-47.0); HGB - HEMOGLOBIN 14.1 g/dL (12.0-16.0); LYMPHOCYTES # (AUTO) 1.8 10^3/uL (1.5-3.5); LYMPHOCYTES % (AUTO) 26.3 %; MEAN CORPUSCULAR HEMOGLOBIN 32.6 pg (27.0-31.0); MEAN CORPUSCULAR HGB CONC 33.5 g/dL (32.0-36.0); MEAN CORPUSCULAR VOLUME 97.5 fL (81.0-99.0); MEAN PLATELET VOLUME 9.2 fL (7.9-10.8); MONOCYTES # (AUTO) 0.5 10^3/uL (0.0-1.0); MONOCYTES % (AUTO) 6.6 %; NEUTROPHILS # (AUTO) 4.3 10^3/uL (1.5-6.6); NEUTROPHILS % (AUTO) 63.1 %; PLT - PLATELET COUNT 340 10^3/uL (130-450); RED BLOOD COUNT 4.32 10^6/uL (4.20-5.40); RED CELL DISTRIBUTION WIDTH 12.3 % (12.0-15.0); WHITE BLOOD COUNT 6.8 x10^3/uL (4.8-10.8)
[2023-11-08 14:55] LABS: FERRITIN 41.2 ng/mL (11.0-306.8)
== END 2023-11-08 09:42 | disposition home or self-care (01) ==
LOC: LAB.N 09:41
PROVIDERS: ATTEND Internal Medicine
DX: I67.850 Cerebral autosomal dominant arteriopathy with subcortical infarcts and leukoencephalopathy (principal); E78.5 Hyperlipidemia, unspecified; E53.8 Deficiency of other specified B group vitamins; G25.81 Restless legs syndrome; F32.A Depression, unspecified
CPT/HCPCS: 36415; 80053; 80061; 82607; 82728; 83721; 84443; 85025

== ENCOUNTER 2023-11-10 09:44 | Outpatient (CLI) | payer MEDICARE, OTHER ==
--- NOTE | 2023-11-10 13:09 | XRAY Report ---
PROCEDURE: Cervical Spine w/Flex/Ext 6+V INDICATIONS: OSSEOUS STENOSIS TECHNIQUE: 7 views of the cervical spine were acquired. COMPARISON: None. FINDINGS: Bones: No fractures or dislocations to the T1 level. Grade 1 anterolisthesis of C4 on C5. Mild kyph osis at C3-C5. Multilevel disc space narrowing and endplate osteophyte formation, worst at C5-C6, C6- C7, and C7-T1, indicating degenerative disc disease. Multilevel facet hypertrophy predominantly withi n the mid and lower cervical spine. No instability throughout limited range of motion. No suspicious bony lesions. Soft tissues: Prevertebral soft tissues are normal in thickness. IMPRESSION: 1. Multilevel degenerative disc and facet disease. 2. No acute fracture. No osseous lesion. If symptoms and/or clinical suspicion for pathology continue , further assessment with repeat plain films, or advanced imaging (e.g., CT, MRI, or bone scan) is re commended for further assessment. Reviewed by: Anson Dawn MD on 11/10/2023 1:07 PM PDT Approved by: Anson Dawn MD on 11/10/2023 1:07 PM PDT Station ID: [id number]
== END 2023-11-10 09:45 | disposition home or self-care (01) ==
LOC: DI.N 09:44
PROVIDERS: ATTEND Internal Medicine
DX: M99.31 Osseous stenosis of neural canal of cervical region (principal); M47.812 Spondylosis without myelopathy or radiculopathy, cervical region